=== PATIENT | male | born 1960 | race Caucasian/White ===

== ENCOUNTER 2025-03-06 10:55 | Day surgery (SDC) | payer OTHER ==
[~2025-03-06] VITALS: Ht 177.8 cm; Wt 86.0 kg
[~2025-03-06 10:55] MED LIST: CEFAZOLIN SODIUM 2 GM in SODIUM CHLORIDE 0.9% 100 ML IV SCH; CLOPIDOGREL75 MG PO; IBLOOD GLUCOSE TEST STRIP 1 EA TEST VI PRN; JARDIANCE10 MG PO; LACTATED RINGER'S 1,000 ML IV SCH; LIDOCAINE HCL 1% 5 ML SDV INJ ONE; LIDOCAINE HCL 2% 5 ML SDV ONE; LISINOPRIL20 MG PO; LOSARTAN POTASS50 MG PO; METOPROLOL SUCC50 MG PO; OZEMPIC2 MG/0.75 SUB-Q; PRILOSEC10 M1 PO; ROSUVASTATIN CA20 MG PO; Ropivacaine HCl 0.5% 30 ML VIAL ONE; TRANEXAMIC ACID IN NACL,ISO-OS 1,000 MG/100 ML PIGGYBACK IV SCH
[2025-03-06] MEDS ORDERED: DEXAMETHASONE SOD PHOS 10 MG/ML VIAL ONE (11:04)
[2025-03-06 11:14] VITALS: BP 125/81
[2025-03-06] MEDS ORDERED: ROCURONIUM BROMIDE 50 MG/5 ML SYR ONE (11:24)
[2025-03-06] MEDS ORDERED: LIDOCAINE HCL 2% 5 ML SDV ONE (11:24)
[2025-03-06] MEDS ORDERED: fentaNYL citrate 100 MCG/2 ML VIAL ONE (12:01)
[2025-03-06] MEDS ORDERED: DEXAMETHASONE SOD PHOS 4 MG/ML VIAL ONE (12:28)
[2025-03-06] MEDS ORDERED: KETOROLAC TROMETHAMINE 30 MG/ML VIAL ONE (12:28)
[2025-03-06] MEDS ORDERED: PHENYLEPHRINE HCL IN 0.9% NACL 1 MG/10 ML SYR ONE (12:36)
[2025-03-06] MEDS ORDERED: IBLOOD GLUCOSE TEST STRIP 1 EA TEST VI PRN (12:45)
[2025-03-06] MEDS ORDERED: fentaNYL citrate 50 MCG/ML SDV IV PRN (12:45)
[2025-03-06] MEDS ORDERED: NALOXONE HCL 0.4 MG SYR IV PRN (12:45)
[2025-03-06] MEDS ORDERED: HYDROmorphone HCL 1 MG/ML SYR IV PRN (12:45)
[2025-03-06] MEDS ORDERED: ACETAMINOPHEN 1,000 MG/100 ML VIAL ONE (12:51)
[2025-03-06] MEDS ORDERED: SUGAMMADEX SODIUM 200 MG/2 ML ML ONE (12:51)
[2025-03-06] MEDS ORDERED: SEVOFLURANE 250 ML BTL INH ONE (13:04)
[2025-03-06] MEDS ORDERED: DICLOFENAC SOD 75 MG TABEC PO SCH (13:08)
--- NOTE | 2025-03-06 13:11 | NUR ---
03/06/25 1311 Brenda Royal 1308: PT ARRIVES TO PACU WITH ORAL ARIWAY IN PLACE, BUT REACTIVE. REPORT RECEIVED FROM MAIL AGENT AND FIRE LIEUTENANT.
[2025-03-06] MEDS ORDERED: OXYCODONE HCL5 M1 PO (13:14)
[2025-03-06] MEDS ORDERED: ONDANSETRON HCL4 MG PO (13:14)
[2025-03-06] MEDS ORDERED: KETOROLAC TROMETHAMINE 15 MG/ML VIAL IV PRN (13:15)
[2025-03-06] MEDS ORDERED: OXYCODONE HCL 5 MG TAB PO PRN (13:15)
[2025-03-06 13:45] VITALS: BP 115/63
--- NOTE | 2025-03-06 13:48 | NUR ---
CALL LIGHT GIVEN AT BS. PT VERY TALKATIVE.
[2025-03-06 14:45] VITALS: BP 119/70
--- NOTE | 2025-03-06 14:50 | NUR ---
BLOCK EFFECTIVE NO PAIN. L SHOULDER.
--- NOTE | 2025-03-06 16:24 | NUR ---
1535-PT LAYING IN BED. RESP EVEN AND UNLABORED. PT ALLEN PAIN. STATES GOOD PAIN CONTROL WITH NERVE BLOCK. PT NEEDS TO USE THE RESTROOM. 1540-PT AMBULATES TO RESTROOM. PT ABLE TO VOID. 1545-PT BACK TO ROOM. WILL GET DRESSED WITH THE HELP OF HIS .
--- NOTE | 2025-03-06 16:29 | NUR ---
1555-WENT OVER DISCHARGE INSTUCTIONS WITH PT AND HIS . WENT OVER POSTOP MEDICATIONS. ALL QUESTIONS ANSWERED. WILL BRING CAR TO FRONT OF HOSPITAL. 1600-PT AMBULATES TO WHEELCHAIR AND RIDE PROVIDED TO FRONT OF HOSPITAL WHERE RIDE WAS WAITING WITH THE CAR.
--- NOTE | 2025-03-07 07:07 | OR ---
[facility] [address], [place] [address] Signed DATE OF OPERATION: 03/06/2025 SURGEON: Kathleen Mccormack MD PREOPERATIVE DIAGNOSIS: Partial rotator cuff tear, left shoulder. POSTOPERATIVE DIAGNOSIS: Partial rotator cuff tear, left shoulder. PROCEDURE PERFORMED: Left shoulder arthroscopy with subacromial decompression, partial acromioplasty . FLASH OVEN OPERATOR: None. ANESTHESIA: General. BLOOD LOSS: Minimal. BRIEF HISTORY: Terrell is a 64-year-old gentleman with pain in his shoulder and MRI suggestive of partial, possibly full-thickness rotator cuff tear. Risks and benefits of operative treatment were discussed with him. He elected to proceed. Once consent was obtained, he was taken to the operating room. After adequate anesthesia he was placed on the operating room table in a beach chair position. All downside pressure points were well padded. Left shoulder was prepped and draped in a standard sterile fashion. The shoulder was injected with 15 mL of 0.25% Marcaine with epinephrine as was subacromial space. Standard posterior portal was made. The scope was introduced in the shoulder. ARTHROSCOPIC FINDINGS: The glenohumeral surfaces were intact. Biceps, biceps anchor and labrum were intact. There was a minor amount of redness in the biceps distally on the dorsal surface. The undersurface of the rotator cuff showed some partial-thickness tearing up to 25% just posterior to the rotator cuff. No full-thickness tears were identified. Subacromial space showed marked thickening of the bursa with induration and inflammation throughout. There was a type 2 to almost type 3 acromion anteriorly. Electronically Signed By: KATHLEEN MCCORMACK MD 03/07/25 0707 PATIENT NAME: TERRELL STALLINGS OPERATIVE REPORT DATE OF : 58 REPORT #: [id number] PHYSICIAN: KATHLEEN MCCORMACK MD PCP: CLIF GARCIA PA-C REPORT IS CONFIDENTIAL AND NOT TO BE RELEASED WITHOUT AUTHORIZATION [facility] [address], [place] [address] Signed DESCRIPTION OF OPERATION: Diagnostic arthroscopy was undertaken as noted above. Standard anterior portal was established using an outside-in technique. The shaver was then used to debride the rotator cuff undersurface just posterior to the biceps. The tear was then investigated with probe and spinal needle was placed from the outside. Again, no full-thickness tear was identified. The scope was then withdrawn, placed in subacromial space. There was extensive bursitis throughout and a lateral portal was established using a combination of Mitek VAPR and the shaver. We were able to remove the bursa to allow good visualization both from the superior surface of the rotator cuff and the undersurface of the acromion. The rotator cuff was inspected down to where the spinal needle was located. No full-thickness or even partial-thickness dorsal tearing was noted. The acromion was however fairly hooked and this was flattened out using the acromionizer belem. Once this was completed, the remainder of the bursa posteriorly was removed. The entire superior surface of the rotator cuff was inspected and found to be intact. Scope was withdrawn. Portals were closed with 3-0 nylon and the wounds were dressed with Allevyn and OpSite. He tolerated the procedure well. All sponge, needle, and instrument counts were correct. Kathleen Mccormack MD BA/MODL /[id number] Copies: ~ Electronically Signed By: KATHLEEN MCCORMACK MD 03/07/25 0707 PATIENT NAME: TERRELL STALLINGS OPERATIVE REPORT DATE OF : 58 REPORT #: [id number] PHYSICIAN: KATHLEEN MCCORMACK MD PCP: CLIF GARCIA PA-C REPORT IS CONFIDENTIAL AND NOT TO BE RELEASED WITHOUT AUTHORIZATION
== END 2025-03-06 16:00 | disposition home or self-care (01) ==
LOC: DS 10:55
PROVIDERS: ATTEND Specialist
PROC: 3E0T3BZ Introduction of Anesthetic Agent into Peripheral Nerves and Plexi, Percutaneous Approach (ICD-10-PCS; 2025-03-06)
PROC: 0RNK4ZZ Release Left Shoulder Joint, Percutaneous Endoscopic Approach (ICD-10-PCS; principal; 2025-03-06 13:30)
DX: M75.102 Unspecified rotator cuff tear or rupture of left shoulder, not specified as traumatic (principal); E11.9 Type 2 diabetes mellitus without complications; I10 Essential (primary) hypertension; I25.10 Atherosclerotic heart disease of native coronary artery without angina pectoris; G89.18 Other acute postprocedural pain; Z79.899 Other long term (current) drug therapy
CPT/HCPCS: 01630; 64415; J0131; J0165; J0688; J1100; J1885; J2003; J2405; J2704; J2795; J3010; J3490; J7121